=== PATIENT | female | born 1960 ===

== ENCOUNTER 2021-09-27 12:54 | Outpatient (CLI) | payer BC | END 2021-09-27 12:55 | disposition home or self-care (01) | LOC: CSHLAB 12:54 | PROVIDERS: ATTEND Obstetrics & Gynecology | DX: Z01.812 Encounter for preprocedural laboratory examination (principal); Z20.822 Contact with and (suspected) exposure to COVID-19 | CPT/HCPCS: 80048; 85027; 86850; 86900; 86901; U0003; U0005 ==

== ENCOUNTER 2021-10-02 09:35 | Day surgery (SDC) | payer BC ==
[2021-09-26 12:09] VITALS: BMI 25.7
[2021-09-27 15:32] LABS: Hemoglobin 13.4 g/dL (12.0-15.5); Mean Corpuscular Hemoglobin 33.2 pg (27.0-33.0); Mean Corpuscular Volume 97.5 fl (81.6-98.3); Mean Platelet Volume 8.9 fl (7.4-10.4); Platelet Count 240 10x3/uL (150-450); RBC Distribution Width 14.3 % (11.5-14.5); Red Blood Cell (RBC) Count 4.04 10x6/uL (3.90-5.03); White Blood Cell (WBC) Count 4.6 10x3/uL (3.5-10.5)
[2021-09-27 15:48] LABS: Anion Gap 13 mmol/L (10-20); BUN (Urea Nitrogen) 20 mg/dL (9.8-20.1); Calc. Creatinine Clearance 0 mL/min (70-130); Calcium 9.9 mg/dL (7.8-10.44); Carbon Dioxide 28 mmol/L (22-29); Glucose 77 mg/dL (70-105); Potassium 4.6 mmol/L (3.5-5.1); Sodium 138 mmol/L (136-145)
[2021-09-27 15:54] LABS: Chloride 102 mmol/L (98-107)
[2021-09-28 17:10] LABS: SARS-CoV-2 PCR by NAA Not Detected (NotDetected)
[2021-10-02] MEDS ORDERED: CeleCOXIB 100 MG CAP ONE (09:54)
[2021-10-02] MEDS ORDERED: Lidocaine 1% MPF 2 ML VIAL ONE (09:55)
[2021-10-02] MEDS ORDERED: Fentanyl 100 MCG/2 ML VIAL ONE (11:07)
[2021-10-02] MEDS ORDERED: PROPOFOL 20 ML ONE (11:07)
[2021-10-02] MEDS ORDERED: Ondansetron PF 4 MG/2 ML Vial ONE (11:10)
[2021-10-02] MEDS ORDERED: Dexamethasone 4 mg/ml Vial ONE (11:10)
[2021-10-02] MEDS ORDERED: Ketorolac Tromethamine 30 MG/ML VIAL ONE (11:11)
[2021-10-02] MEDS ORDERED: ceFAZolin 2 GM/Dextrose 50 ML IVPB ONE (11:25)
[2021-10-02] MEDS ORDERED: Glycopyrrolate 0.2 MG/ML 5 ML SYRINGE ONE (11:52)
== END 2021-10-02 13:45 | disposition home or self-care (01) ==
LOC: CSHSDC 09:35
PROVIDERS: ATTEND Obstetrics & Gynecology
PROC: 0UB98ZX Excision of Uterus, Via Natural or Artificial Opening Endoscopic, Diagnostic (ICD-10-PCS; principal; 2021-10-02)
DX: N84.0 Polyp of corpus uteri (principal); N95.0 Postmenopausal bleeding; E03.9 Hypothyroidism, unspecified; M19.90 Unspecified osteoarthritis, unspecified site; G43.909 Migraine, unspecified, not intractable, without status migrainosus; M46.90 Unspecified inflammatory spondylopathy, site unspecified; Z79.899 Other long term (current) drug therapy; Z88.8 Allergy status to other drugs, medicaments and biological substances; Z20.822 Contact with and (suspected) exposure to COVID-19
CPT/HCPCS: 80048; 85027; 86850; 86900; 86901; 88305; J0690; J1100; J1885; J2405; J2704; J3010; U0003; U0005